=== PATIENT | female | born 1975 | race American Indian/Alaskan Native ===

== ENCOUNTER 2018-07-22 08:55 | Outpatient (CLI) | payer OTHER ==
[2018-07-22] MEDS ORDERED: XYLOCAINE TOPICAL 4% TP ONE (09:15)
== END 2018-07-22 08:56 | disposition home or self-care (01) ==
LOC: WOUND 08:55
PROVIDERS: ATTEND Surgery
DX: T81.89XD Other complications of procedures, not elsewhere classified, subsequent encounter (principal); Y83.8 Other surgical procedures as the cause of abnormal reaction of the patient, or of later complication, without mention of misadventure at the time of the procedure
CPT/HCPCS: 97605

== ENCOUNTER 2018-07-29 09:03 | Outpatient (CLI) | payer OTHER ==
[2018-07-29] MEDS ORDERED: XYLOCAINE TOPICAL 4% TP ONE (09:27)
== END 2018-07-29 09:04 | disposition home or self-care (01) ==
LOC: WOUND 09:03
PROVIDERS: ATTEND Surgery
DX: T81.89XD Other complications of procedures, not elsewhere classified, subsequent encounter (principal); L97.112 Non-pressure chronic ulcer of right thigh with fat layer exposed; L97.122 Non-pressure chronic ulcer of left thigh with fat layer exposed; Y83.8 Other surgical procedures as the cause of abnormal reaction of the patient, or of later complication, without mention of misadventure at the time of the procedure
CPT/HCPCS: 97605

== ENCOUNTER 2018-08-05 09:03 | Outpatient (CLI) | payer OTHER | END 2018-08-05 09:04 | disposition home or self-care (01) | LOC: WOUND 09:03 | PROVIDERS: ATTEND Surgery | DX: T81.89XD Other complications of procedures, not elsewhere classified, subsequent encounter (principal); L97.112 Non-pressure chronic ulcer of right thigh with fat layer exposed; L97.122 Non-pressure chronic ulcer of left thigh with fat layer exposed; Y83.8 Other surgical procedures as the cause of abnormal reaction of the patient, or of later complication, without mention of misadventure at the time of the procedure | CPT/HCPCS: 87075; 87076; 87116; 87186; 97605 ==

== ENCOUNTER 2018-08-12 13:35 | Outpatient (CLI) | payer OTHER | END 2018-08-12 13:36 | disposition home or self-care (01) | LOC: WOUND 13:35 | CPT/HCPCS: 97605 ==

== ENCOUNTER 2018-08-19 13:34 | Outpatient (CLI) | payer OTHER ==
[2018-08-19] MEDS ORDERED: XYLOCAINE TOPICAL 4% TP ONE (13:43)
== END 2018-08-19 13:35 | disposition home or self-care (01) ==
LOC: WOUND 13:34
PROVIDERS: ATTEND Surgery
DX: T81.89XD Other complications of procedures, not elsewhere classified, subsequent encounter (principal); L97.112 Non-pressure chronic ulcer of right thigh with fat layer exposed; L97.122 Non-pressure chronic ulcer of left thigh with fat layer exposed; Y83.8 Other surgical procedures as the cause of abnormal reaction of the patient, or of later complication, without mention of misadventure at the time of the procedure

== ENCOUNTER 2018-08-26 13:44 | Outpatient (CLI) | payer OTHER ==
[2018-08-26] MEDS ORDERED: XYLOCAINE TOPICAL 4% TP ONE (14:04)
== END 2018-08-26 13:45 | disposition home or self-care (01) ==
LOC: WOUND 13:44
PROVIDERS: ATTEND Surgery
DX: T81.89XD Other complications of procedures, not elsewhere classified, subsequent encounter (principal); L97.112 Non-pressure chronic ulcer of right thigh with fat layer exposed; L97.122 Non-pressure chronic ulcer of left thigh with fat layer exposed; Y83.8 Other surgical procedures as the cause of abnormal reaction of the patient, or of later complication, without mention of misadventure at the time of the procedure

== ENCOUNTER 2018-09-02 13:32 | Outpatient (CLI) | payer OTHER | END 2018-09-02 13:33 | disposition home or self-care (01) | LOC: WOUND 13:32 | CPT/HCPCS: 99213; G0463 ==